=== PATIENT | male | born 1975 | race Hispanic/Latino ===

== ENCOUNTER 2016-07-02 22:59 | Inpatient (IN) | payer MEDICARE, OTHER ==
--- NOTE | 2016-07-02 23:22 | C.PDOC ---
History Of Present Illness Patient is a transfer from [facility] for psych. admission and accepted by Dr. Persaud. Time Seen by Provider: 07/02/16 23:09 Chief Complaint (Nursing): Psychiatric Evaluation History Per: Patient History/Exam Limitations: no limitations Onset/Duration Of Symptoms: Days Current Symptoms Are (Timing): Still Present Suicide/Self Injury Attempted (Context): None Modifying Factor(s): None Severity: Mild Pain Scale Rating Of: 0 Associated Symptoms: Depression Involuntary Hold By: None Recent travel outside of the [place]: No Additional History Per: Patient, Prior Records Past Medical History Vital Signs: Last Vital Signs Temp 98.3 F 07/02/16 23:09 Pulse 85 07/02/16 23:09 Resp 14 07/02/16 23:09 BP 170/115 H 07/02/16 23:09 Pulse Ox 97 07/02/16 23:30 - Medical History PMH: Back Problems Family History: States: Unknown Family Hx - Social History Hx Alcohol Use: Yes Hx Substance Use: No - Immunization History Hx Tetanus Toxoid Vaccination: Yes Hx Influenza Vaccination: Yes Hx Pneumococcal Vaccination: No Review Of Systems Constitutional: Negative for: Fever Eyes: Positive for: Other (lateral strabismus Right eye) ENT: Negative for: Ear Pain Cardiovascular: Negative for: Chest Pain, Palpitations, Orthopnea Respiratory: Negative for: Cough, Shortness of Breath, Hemoptysis Gastrointestinal: Negative for: Nausea, Vomiting, Abdominal Pain Genitourinary: Negative for: Dysuria Musculoskeletal: Negative for: Neck Pain, Shoulder Pain, Arm Pain Skin: Negative for: Rash, Lesions Neurological: Negative for: Weakness, Numbness, Incoordination, Change in Speech Psych: Positive for: Depression. Negative for: Withdrawal Physical Exam - Physical Exam Appears: Well, Non-toxic Skin: Normal Color Head: Atraumatic Eye(s): right: Other (lateral strabismus) Ear(s): Bilateral: Normal Nose: Normal Oral Mucosa: Moist Tongue: Normal Appearing Lips: Normal Appearing Throat: Normal Neck: Normal Chest: Symmetrical, No Deformity, No Tenderness Cardiovascular: Rhythm Regular, No Edema, No Murmur, No JVD Respiratory: Normal Breath Sounds Gastrointestinal/Abdominal: Normal Exam Back: Normal Inspection Extremity: Normal ROM ED Course And Treatment O2 Sat by Pulse Oximetry: 97 Disposition Discussed With : Elan Persaud Doctor Will See Patient In The: Hospital Counseled Patient/Family Regarding: Diagnosis - Disposition Disposition: HOSPITALIZED Disposition Time: 23:21 Condition: STABLE - POA Present On Arrival: None - Clinical Impression Clinical Impression: Depression, Hypertension
[2016-07-02 23:58] VITALS: O2SAT 99
--- NOTE | 2016-07-03 09:00 | PCM.PSYCH ---
Initial Psychiatric Evaluation - Initial Psychiatric Evaluation Type of Admission: Voluntary Legal Status: Capacity Chief Complaint (in patient's own words): "Very depressed, hopeless..." History of Present Illness and Precipitating Events: The pt is seen, chart reviewed, case discussed. He is a 41 yo WM, single, no child, disabled due to CP and pain syndrome (disc hernias) and is homeless "practically" b/c he was living with [facility] drug dealer and his GF but cannot return there. He says he has been depressed for a long time and it has gotten worse over months as he is losing his father (brain tumor), "kicked out" from his pain clinic due to his cocaine use, has poor support, no real place to stay. He denies psychotic or manic sxs but reports many depressive sxs. He felt suicidal and thought about OD'ing. He also uses cocaine 1-2 gm/d x 20 years, i.n. or po. Smokes 1.5 ppd cigarettes. Abdon drugs and alcohol but he was on painkillers for a while, yet "not abused." No detox or rehab Past psych: No prev. admissions but OD'ed intentionally in the past. Family psych hx: Fa was an alcoholic Medical hx: CP, disch hernia, s/p gastric bypass surgery but he says his health got worse afterwards. Current Medications: Active Medications Generic Name Dose Route Start Last Admin Trade Name Freq PRN Reason Stop Dose Admin Trazodone HCl 50 mg 07/03/16 22:00 Desyrel PO [facility] Past Psychiatric History - Past Psychiatric History Previous Treatment History: None Pertinent Medical Hx (Current Medical&Sleep Prob, Allergies): Allergies Allergy/AdvReac Type Severity Reaction Status Date / Time phenobarbital Allergy Verified 07/02/16 23:15 No Known Home Med 07/02/16 Review of Systems - Neurological Neurological: Weakness - Psychiatric Psychiatric: Abnormal Sleep Pattern, Anhedonia, Anxiety, Depression, Difficulty Concentrating. absent: Hallucinations, Homicidal Ideation, Paranoia, Suicidal Ideation (none now, contracts for safety) Mental Status Examination - Personal Presentation Personal Presentation: Looks older than stated age - Affect Affect: Constricted - Motor Activity Motor Activity: Calm - Reliability in Providing Information Reliability in Providing Information: Fair - Speech Speech: Organized - Mood Mood: Depressed, Anxious - Formal Thought Process Formal Thought Process: No Impairment - Cognitive Functions Orientation: Person, Place, Situation, Time Sensorium: Alert Attention/Concentration: Attentive Estimate of Intelligence: Average Judgement: Intact, as evidence by: Insight regarding need for hospitalization Memory: Recent intact, as evidence by: Ability to recall events of the day, Remote intact, as evidenced by: Abilit to recall sig. life events - Risk Risk: Diminished functioning - Strength & Assets Inventory Strength & Assets Inventory: Cooperative - Limitations Limitations: Living alone DSM 5 DX - DSM 5 DSM 5 Diagnosis: major depression, recurrent, severe, not-psychotic Cocaine use d/o - severe Tobacco use d/o - sveer Disc hernia CP - Recommended/Plan of Treatment Treatment Recommendations and Plan of Treatment: Depression: - Cymbalta - Support and psychoed - Attend groups and activities - CBt and supportive tx Cocaine use d/o: - Gabapentin - CBT and [place] - Attend groups and activities Pain and other medical issues: - Periactin for weight loss and loss of appetite - Ultram prn for pain - Bactrim for UTI - Flexeril for spasms Tobacco: - Patch - [place] for abstinence 33 min Projected ELOS: 5-6 days Prognosis: Fair to good Discharge Plan and Discharge Criteria: No severe depressive sxs Refer to an IOP or rehab - Smoking Cessation Smoking Cessation Initiated: Yes
[2016-07-03] MEDS: Tramadol 25 mg PO PRN (12:48)
[2016-07-03] MEDS: Tmp-Smz 800 mg-160 mg DS Tab PO SCH (13:19)
[2016-07-03] MEDS: Tmp-Smz 200-40mg/5 ml Oral Sus(120 ml) PO SCH (21:22)
[2016-07-04] MEDS: Tmp-Smz 800 mg-160 mg DS Tab PO SCH (11:05)
[2016-07-04] MEDS: Tmp-Smz 200-40mg/5 ml Oral Sus(120 ml) PO SCH (11:09)
--- NOTE | 2016-07-04 14:51 | PCM.PYCHPN ---
Psychiatric Progress Note - Psychiatric Progress Note Patient seen today, length of contact: 17 min Patient Chief Complaint: "I am feeling so so" Problems Identified/Issues Discussed: Pt seen and evaluated. Chart reviewed and discussed with the nurse. Pt appears withdrawn anxious and agitated. He complains of nausea and vomited once today after lunch. He admits to suicidal ideation. Denies homicidal ideation. Denies auditory and visual hallucinations or persecutory delusions. Pt would like to go to inpatient rehab after discharge. Supportive therapy and PsychEducation provided. Medication Change: Yes Medical Record Reviewed: Yes Mental Status Examination - Cognitive Function Orientation: Person, Place, Situation, Time Attention: Poor Concentration: Poor Association: WNL Fund of Knowledge: WNL - Mood Mood: Depressed, Anxious - Affect Affect: Constricted - Speech Speech: Slurred, Soft - Formal Thought Process Formal Thought Process: No Impairment - Suicidal Ideation Suicidal Ideation: Yes Plan: Pt states that he feels like driving his car through a wall - Homicidal Ideation Homicidal Ideation: No Goal/Treatment Plan - Goal/Treatment Plan Need for Continued Stay: Discharge may exacerbated symptoms, Severe functional impairment Progress Toward Problem(s) and Goals/Treatment Plan: Depression: - Cymbalta - Support and psychoed - Attend groups and activities - CBt and supportive tx Cocaine use d/o: - Gabapentin - CBT and MD - Attend groups and activities Pain and other medical issues: - Periactin for weight loss and loss of appetite - Ultram prn for pain - Bactrim for UTI - Flexeril for spasms Tobacco: - Patch - MD for abstinence
--- NOTE | 2016-07-04 17:20 | CP.PCM.PN ---
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 Pt seen and examined. Pt had an unwitnessed fall. At time of exam, pt is sutting in wheel chair. According to nurse, pt was found face down on the floor. Pt reports that he got up and was alking to kitchen when he felt dizzy, and then he does not remember what happened afterwards. He reports he woke up and he was bleeding from his nose. Pt complaining of dizziness and right knee pain. Pt denies fever, chills, headache, changes in vision, nausea, and vomiting. Vitals at 17:14 reveal a blood pressure of 144/91 and HR of 109. CBC, CMP, Head CT, and right knee X-Ray ordered. Pt refused fingerstick glucose. Objective - Vital Signs/Intake and Output Vital Signs (last 24 hours): Temp Pulse Resp BP Pulse Ox 98.9 F 91 H 18 120/80 99 07/04/16 08:04 07/04/16 16:12 07/04/16 08:04 07/04/16 16:12 07/02/16 23:57 - Medications Medications: Current Medications Cyclobenzaprine HCl (Flexeril) 5 mg PO Q8H PRN PRN Reason: muscle spasms Last Admin: 07/04/16 11:04 Dose: 5 mg Cyproheptadine HCl (Periactin) 4 mg PO HS [facility] Last Admin: 07/03/16 21:22 Dose: Not Given Duloxetine HCl (Cymbalta) 30 mg PO DAILY [facility] Last Admin: 07/04/16 11:06 Dose: 30 mg Gabapentin (Neurontin) 300 mg PO TID [facility] Last Admin: 07/04/16 11:06 Dose: 300 mg Hydroxyzine HCl (Atarax) 50 mg PO Q6H PRN PRN Reason: Anxiety Ibuprofen (Motrin Tab) 600 mg PO Q6H PRN PRN Reason: Pain, moderate (4-7) Nicotine (Nicoderm Cq) 1 patch TD DAILY [facility] Last Admin: 07/04/16 11:07 Dose: 1 patch Tramadol HCl (Ultram) 25 mg PO Q8H PRN PRN Reason: Pain, severe (8-10) Last Admin: 07/03/16 12:48 Dose: 25 mg Trazodone HCl (Desyrel) 100 mg PO HS [facility] Last Admin: 07/03/16 21:22 Dose: 100 mg Trimethoprim/Sulfamethoxazole (Sulfatrim Pediatric Susp) 20 ml PO Q12H [facility] Stop: 07/10/16 10:01 Last Admin: 07/04/16 11:09 Dose: 20 ml - Constitutional Appears: No Acute Distress - Head Exam Head Exam: ATRAUMATIC, NORMOCEPHALIC - ENT Exam Additional comments: Bloody nose - Respiratory Exam Respiratory Exam: Clear to Ausculation Bilateral - Cardiovascular Exam Cardiovascular Exam: +S1, +S2 - GI/Abdominal Exam GI & Abdominal Exam: Soft. absent: Tenderness - Extremities Exam Extremities Exam: absent: Pedal Edema - Neurological Exam Neurological Exam: Alert, Awake, Oriented x3 - Psychiatric Exam Psychiatric exam: Depressed - Skin Skin Exam: Normal Color, Warm
--- NOTE | 2016-07-04 18:23 | CT ---
PROCEDURE: CT scan brain dated the 07/04/2016 HISTORY: Fall COMPARISON: No prior study available comparison TECHNIQUE: Axial computed tomography images were obtained through the head/brain without intravenous contrast. Radiation dose: Total exam DLP = 1247.6 mGy-cm. This CT exam was performed using one or more of the following dose reduction techniques: Automated exposure control, adjustment of the mA and/or kV according to patient size, and/or use of iterative reconstruction technique. FINDINGS: HEMORRHAGE: No acute parenchymal, subarachnoid or extra-axial hemorrhage. BRAIN: No mass effect or edema. No atrophy or chronic microvascular ischemic changes. VENTRICLES: There is enlargement of the atria and occipital horns right greater than left suggesting with loss of adjacent white matter more so on the right side as well. Rule out mild colpocephaly CALVARIUM: There are no acute calvarial fractures. PARANASAL SINUSES: Minor mucosal thickening seen within the ethmoid air complex. MASTOID AIR CELLS: Mastoid air complexes well-developed and also well-aerated. OTHER FINDINGS: Bilateral nasal bone fractures are present. IMPRESSION: Bilateral nasal bone fractures with overlying soft tissue swelling No acute intracranial hemorrhage. Dilatation of the atria and occipital horns with what appears represent periventricular white matter volume loss more so on the right side. Findings could represent colpocephaly
[2016-07-04 21:37] LABS: BASO # 0.1 K/uL (0.0-0.2); BASO % 0.6 % (0.0-2.0); EOS # 0.2 K/uL (0.0-0.7); EOS % 2.5 % (0.0-4.0); LYMPH # 1.2 K/uL (1.0-4.3); MEAN CELL VOLUME 80.2 fL (80.0-94.0); MEAN CORPUSCULAR HGB CONC 32.4 g/dL (33.0-37.0); MONO # 0.7 K/uL (0.0-0.8); MONO % 8.9 % (0.0-10.0); RED CELL DISTRIBUTION WIDTH 17.6 % (11.5-14.5); WHITE BLOOD COUNT 8.2 K/uL (4.8-10.8)
[2016-07-04 21:48] LABS: CHLORIDE 97 mmol/L (98-107); POTASSIUM 3.9 mmol/L (3.6-5.2); SODIUM 134 mmol/L (132-148)
[2016-07-04 21:50] LABS: BILIRUBIN,TOTAL 0.4 mg/dL (0.2-1.3); CARBON DIOXIDE 30 mmol/L (22-30); GFR AFRICAN-AMERICAN > 60
[2016-07-04 21:51] LABS: ALB/GLOB RATIO 1.2 (1.0-2.1); ALKALINE PHOSPHATASE 91 U/L (38-126); ALT/SGPT 19 U/L (21-72); AST/SGOT 25 U/L (17-59); BLOOD UREA NITROGEN 10 mg/dL (9-20); CALCIUM 8.4 mg/dl (8.6-10.4); GLUCOSE,RANDOM 88 mg/dL (75-110); MAGNESIUM 2.5 mg/dL (1.6-2.3); PHOSPHOROUS 4.2 mg/dL (2.5-4.5); TOTAL PROTEIN 6.3 g/dL (6.3-8.3)
[2016-07-05] MEDS: Tmp-Smz 200-40mg/5 ml Oral Sus(120 ml) PO SCH ×2 (11:38→21:26)
--- NOTE | 2016-07-05 13:15 | RAD ---
PROCEDURE: Right Knee Radiographs. HISTORY: Trauma/fall. COMPARISON: None. FINDINGS: BONES: Normal. No fracture. JOINTS: Normal. No osteoarthritis. JOINT EFFUSION: None. OTHER FINDINGS: None. IMPRESSION: No acute findings related to/accounting for the clinical presentation.
--- NOTE | 2016-07-05 15:33 | PCM.PYCHPN ---
Psychiatric Progress Note - Psychiatric Progress Note Patient seen today, length of contact: 17 min Patient Chief Complaint: "I feel sore in my hands, back, nose" Problems Identified/Issues Discussed: Patient reports feeling sore on his hands, back and nose. Last night the patient felt dizzy, went to lean on a door which opened, causing him to fall and patient said the next thing remembers is waking up. CT came back negative. Reports having thoughts of hurting himself with a plan of overdosing on medication and feels that people are out to get him including his sister. Denies homicidal ideation. Patient reports withdrawal symptoms including nausea , abdominal pain, body aches, chills and denies any medication side effects. Patient currently feels anxious about life and denies feelings of anger and agitation. Denies auditory and visual hallucinations, feeling like people are following him or reading his mind and thoughts. Patient does not have plans for after discharge and would like to speak to a social media intern to coordinate one. Medication Change: Yes Medical Record Reviewed: Yes Mental Status Examination - Cognitive Function Orientation: Person, Place, Situation, Time Memory: Intact Attention: WNL Concentration: Poor Association: WNL Fund of Knowledge: WNL - Mood Mood: Depressed, Anxious - Affect Affect: Constricted - Speech Speech: Soft - Formal Thought Process Formal Thought Process: Paranoia Psychotic Thoughts and Behaviors: Patient feels like people are out to get him, including his sister. - Suicidal Ideation Suicidal Ideation: Yes Plan: Plan is to overdose on medications. - Homicidal Ideation Homicidal Ideation: No Goal/Treatment Plan - Goal/Treatment Plan Need for Continued Stay: Severe depression anxiety, Discharge may exacerbated symptoms, Severe functional impairment Progress Toward Problem(s) and Goals/Treatment Plan: Depression: - Cymbalta - Support and psychoeducation - Attend groups and activities - CBT and supportive tx Cocaine use d/o: - Gabapentin - CBT and [place] - Attend groups and activities Pain and other medical issues: - Periactin for weight loss and loss of appetite - Ultram prn for pain - Bactrim for UTI - Flexeril for spasms Tobacco: - Patch - [place] for abstinence
[2016-07-05] MEDS: Tramadol 25 mg PO PRN (21:30)
[2016-07-06] MEDS: Multiple Vitamins Tab PO SCH (11:59)
--- NOTE | 2016-07-06 15:02 | PCM.PYCHPN ---
Psychiatric Progress Note - Psychiatric Progress Note Patient seen today, length of contact: 16 min Patient Chief Complaint: "I am feeling better." Problems Identified/Issues Discussed: The pt is seen, chart reviewed, case discussed with staff. Patient reports felling better but still has thoughts of hurting himself with a plan to go park his car and use carbon monoxide poisoning. Patient is anxious, feels like people are out to gt him, and started to hear voices last night but did not understand what the voices were saying. Denies homicidal ideation, visual hallucinations, feeling that people are following him or reading his mind and thoughts. Patient reports detox is going well, however he has poor sleep and appetite. Withdrawal symptoms include nausea, abdominal pain, body aches, cold/heat intolerance, sweating, chills. Side effects to the medication include diarrhea and lethargy. Pt refused PT consult. Plans after discharge include rehab. Medication Change: Yes Medical Record Reviewed: Yes Mental Status Examination - Cognitive Function Orientation: Person, Place, Situation, Time Memory: Intact Attention: WNL Concentration: Poor Association: WNL Fund of Knowledge: WNL - Mood Mood: Depressed, Anxious - Affect Affect: Constricted - Speech Speech: Soft - Formal Thought Process Formal Thought Process: Hallucinations, Paranoia Psychotic Thoughts and Behaviors: Patient began hearing voices that were not there last night. Patient did not understand the voices. - Suicidal Ideation Suicidal Ideation: Yes Plan: Plan includes parking somewhere and using carbon monoxide. - Homicidal Ideation Homicidal Ideation: No Goal/Treatment Plan - Goal/Treatment Plan Need for Continued Stay: Severe depression anxiety, Discharge may exacerbated symptoms, Severe functional impairment Progress Toward Problem(s) and Goals/Treatment Plan: Major Depressive Disorder, chronic with psychotic features: - Cymbalta - Support and psychoeducation - Attend groups and activities - CBT and supportive tx Cocaine use d/o: - Gabapentin - CBT and [place] - Attend groups and activities Pain and other medical issues: - Periactin for weight loss and loss of appetite - Ultram prn for pain - Bactrim for UTI - Flexeril for spasms Tobacco: - Patch - [place] for abstinence
[2016-07-06] MEDS: Tmp-Smz 200-40mg/5 ml Oral Sus(120 ml) PO SCH (21:41)
[2016-07-07] MEDS: Tmp-Smz 200-40mg/5 ml Oral Sus(120 ml) PO SCH (21:15)
--- NOTE | 2016-07-07 22:26 | PCM.PYCHPN ---
Psychiatric Progress Note - Psychiatric Progress Note Patient seen today, length of contact: 17 min Patient Chief Complaint: "I am dizzy" Problems Identified/Issues Discussed: The pt is seen, chart reviewed, case discussed with staff. Patient is imprving slowly. Support and psychoed given KS used Still slightly unsteady but not motivated for PE After care discussed Medication Change: No Medical Record Reviewed: Yes Mental Status Examination - Cognitive Function Orientation: Person, Place, Situation, Time Memory: Intact Attention: WNL Concentration: Poor Association: WNL Fund of Knowledge: WNL - Mood Mood: Depressed, Anxious - Affect Affect: Constricted - Speech Speech: Soft - Formal Thought Process Formal Thought Process: Paranoia Psychotic Thoughts and Behaviors: Patient began hearing voices that were not there last night. Patient did not understand the voices. - Suicidal Ideation Suicidal Ideation: No - Homicidal Ideation Homicidal Ideation: No Goal/Treatment Plan - Goal/Treatment Plan Need for Continued Stay: Severe depression anxiety, Discharge may exacerbated symptoms, Severe functional impairment Progress Toward Problem(s) and Goals/Treatment Plan: Major Depressive Disorder, chronic with psychotic features: - Cymbalta - Support and psychoeducation - Attend groups and activities - CBT and supportive tx Cocaine use d/o: - Gabapentin dc'ed - CBT and [place] - Attend groups and activities Pain and other medical issues: - Periactin for weight loss and loss of appetite - Ultram prn for pain - Bactrim for UTI - Flexeril for spasms Tobacco: - Patch - [place] for abstinence
[2016-07-08] MEDS: Pantoprazole 40 mg EC Tab PO SCH (11:22)
[2016-07-08] MEDS: Multiple Vitamins Tab PO SCH (11:25)
--- NOTE | 2016-07-08 15:17 | PCM.PYCHPN ---
Psychiatric Progress Note - Psychiatric Progress Note Patient seen today, length of contact: 15 min Patient Chief Complaint: "I am OK a little" Problems Identified/Issues Discussed: The pt is seen, chart reviewed, case discussed with staff. His eating is still a problem. Diet changed, vitamins added, advice and consult provided. Support and [place] used, CBT provided Not suicidal but still depressed / anxious Medication Change: No Medical Record Reviewed: Yes Mental Status Examination - Cognitive Function Orientation: Person, Place, Situation, Time Memory: Intact Attention: WNL Concentration: WNL Association: WN Fund of Knowledge: WN - Mood Mood: Depressed, Anxious - Affect Affect: Constricted - Speech Speech: Soft - Formal Thought Process Formal Thought Process: No Impairment Psychotic Thoughts and Behaviors: Patient began hearing voices that were not there last night. Patient did not understand the voices. - Suicidal Ideation Suicidal Ideation: No - Homicidal Ideation Homicidal Ideation: No Goal/Treatment Plan - Goal/Treatment Plan Need for Continued Stay: Severe depression anxiety, Discharge may exacerbated symptoms, Severe functional impairment Progress Toward Problem(s) and Goals/Treatment Plan: Major Depressive Disorder, chronic with psychotic features: - Cymbalta - Support and psychoeducation - Attend groups and activities - CBT and supportive tx Cocaine use d/o: - Gabapentin dc'ed - CBT and [place] - Attend groups and activities Pain and other medical issues: - Periactin for weight loss and loss of appetite - Ultram prn for pain - Bactrim for UTI ending - Flexeril for spasms Tobacco: - Patch - [place] for abstinence
[2016-07-08 18:26] LABS: BASO % 0.6 % (0.0-2.0); EOS # 0.1 K/uL (0.0-0.7); HEMATOCRIT 34.9 % (35.0-51.0); LYMPH # 0.8 K/uL (1.0-4.3); LYMPH % 11.3 % (20.0-40.0); MEAN CELL VOLUME 79.8 fL (80.0-94.0); MEAN CORPUSCULAR HEMOGLOBIN 25.7 pg (27.0-31.0); MEAN CORPUSCULAR HGB CONC 32.2 g/dL (33.0-37.0); MEAN PLATELET VOLUME 8.2 fL (7.2-11.7); MONO # 0.7 K/uL (0.0-0.8); RED CELL DISTRIBUTION WIDTH 17.5 % (11.5-14.5); WHITE BLOOD COUNT 6.8 K/uL (4.8-10.8)
[2016-07-08 18:43] LABS: CHLORIDE 98 mmol/L (98-107); POTASSIUM 4.5 mmol/L (3.6-5.2); SODIUM 135 mmol/L (132-148)
[2016-07-08 18:45] LABS: ALB/GLOB RATIO 1.2 (1.0-2.1); ALKALINE PHOSPHATASE 95 U/L (38-126); AMYLASE 73 U/L (30-110); AST/SGOT 18 U/L (17-59); BILIRUBIN,TOTAL 0.5 mg/dL (0.2-1.3); BLOOD UREA NITROGEN 11 mg/dL (9-20); CARBON DIOXIDE 28 mmol/L (22-30); GFR AFRICAN-AMERICAN > 60; TOTAL PROTEIN 6.9 g/dL (6.3-8.3)
[2016-07-08 18:46] LABS: ALT/SGPT 19 U/L (21-72); CALCIUM 8.9 mg/dl (8.6-10.4); CHOLESTEROL 150 mg/dL (0-199); GLUCOSE,RANDOM 71 mg/dL (75-110); MAGNESIUM 2.4 mg/dL (1.6-2.3); PHOSPHOROUS 4.7 mg/dL (2.5-4.5)
[2016-07-08] MEDS: Tmp-Smz 200-40mg/5 ml Oral Sus(120 ml) PO SCH (21:34)
[2016-07-09] MEDS: Pantoprazole 40 mg EC Tab PO SCH (11:11)
[2016-07-09] MEDS: Multiple Vitamins Tab PO SCH (11:14)
[2016-07-09] MEDS: Tmp-Smz 200-40mg/5 ml Oral Sus(120 ml) PO SCH ×2 (11:16→21:39)
[2016-07-10] MEDS: Pantoprazole 40 mg EC Tab PO SCH ×2 (10:15→21:51)
[2016-07-10] MEDS: Tmp-Smz 200-40mg/5 ml Oral Sus(120 ml) PO SCH (10:16)
[2016-07-10] MEDS: Multiple Vitamins Tab PO SCH (10:19)
--- NOTE | 2016-07-11 05:17 | PCM.PYCHPN ---
Psychiatric Progress Note - Psychiatric Progress Note Patient seen today, length of contact: 17 min Medication Change: Yes Medical Record Reviewed: Yes Mental Status Examination - Cognitive Function Orientation: Person, Place, Situation, Time Memory: Intact Attention: WNL Concentration: Poor Association: WNL Fund of Knowledge: WNL - Mood Mood: Depressed, Anxious - Affect Affect: Constricted - Speech Speech: Soft - Formal Thought Process Formal Thought Process: Hallucinations, Paranoia - Suicidal Ideation Suicidal Ideation: Yes - Homicidal Ideation Homicidal Ideation: No Goal/Treatment Plan - Goal/Treatment Plan Need for Continued Stay: Severe depression anxiety, Discharge may exacerbated symptoms, Severe functional impairment
[2016-07-11] MEDS: Multiple Vitamins Tab PO SCH ×2 (09:57→10:01)
[2016-07-11] MEDS: Pantoprazole 40 mg EC Tab PO SCH (10:05)
[2016-07-11] MEDS ORDERED: Tramadol 25 mg PO PRN (11:51)
--- NOTE | 2016-07-11 23:02 | PCM.PYCHPN ---
Psychiatric Progress Note - Psychiatric Progress Note Patient seen today, length of contact: 16 min Patient Chief Complaint: "I need to go to a rehab first" Problems Identified/Issues Discussed: The pt is seen, chart reviewed, case discussed with staff. Weekend was better he says but still c/o dizziness. He is now refusing most meds "not all" b/c of dizziness. He is improving but still depressed. Not suicidal. Wants to go to a [facility] and then drug rehab - he is homeless Support given Cymbalta is switched to Lexapro Medication Change: Yes (lexapro) Medical Record Reviewed: Yes Mental Status Examination - Cognitive Function Orientation: Person, Place, Situation, Time Memory: Intact Attention: WNL Concentration: Poor Association: WNL Fund of Knowledge: WNL - Mood Mood: Depressed, Anxious - Affect Affect: Constricted - Speech Speech: Soft - Formal Thought Process Formal Thought Process: No Impairment - Suicidal Ideation Suicidal Ideation: No - Homicidal Ideation Homicidal Ideation: No Goal/Treatment Plan - Goal/Treatment Plan Need for Continued Stay: Severe depression anxiety, Discharge may exacerbated symptoms, Severe functional impairment Progress Toward Problem(s) and Goals/Treatment Plan: Major Depressive Disorder, chronic with psychotic features: - Cymbalta stopped but lexapro started - Support and psychoeducation - Attend groups and activities - CBT and supportive tx Cocaine use d/o: - CBT and [place] provided - Attend groups and activities Pain and other medical issues: - Periactin for weight loss and loss of appetite - Ultram prn for pain decreased - Flexeril for spasms Tobacco: - Patch - [place] for abstinence
[2016-07-12] MEDS ORDERED: Pantoprazole 40 mg EC Tab PO SCH (10:00)
[2016-07-12] MEDS: Multiple Vitamins Tab PO SCH (11:04)
--- NOTE | 2016-07-12 14:16 | PCM.PYCHPN ---
Psychiatric Progress Note - Psychiatric Progress Note Patient seen today, length of contact: 16 min Patient Chief Complaint: "I am a little dizzy" Problems Identified/Issues Discussed: This is a 41yo male who is here for major depression, S/I, and cocaine abuse. The patient complains of dizziness and fears falling. He wants to go to a [facility]. The pt is seen, chart reviewed, case discussed with staff. Support and OR used, CBT provided Not suicidal but still depressed / anxious Eating remains to be a problem. He is pesimistic and ignores how much he has improved. Medication Change: No Medical Record Reviewed: Yes Mental Status Examination - Cognitive Function Orientation: Person, Place, Situation, Time Memory: Intact Attention: WNL Concentration: WNL Association: WNL Fund of Knowledge: WN - Mood Mood: Depressed, Anxious - Affect Affect: Constricted - Speech Speech: Soft - Formal Thought Process Formal Thought Process: No Impairment Psychotic Thoughts and Behaviors: Patient began hearing voices that were not there last night. Patient did not understand the voices. - Suicidal Ideation Suicidal Ideation: No - Homicidal Ideation Homicidal Ideation: No Goal/Treatment Plan - Goal/Treatment Plan Need for Continued Stay: Severe depression anxiety, Discharge may exacerbated symptoms, Severe functional impairment Progress Toward Problem(s) and Goals/Treatment Plan: Major Depressive Disorder, chronic with psychotic features: - Cymbalta - Support and psychoeducation - Attend groups and activities - CBT and supportive tx Cocaine use d/o: - Gabapentin dc'ed - CBT and OR - Attend groups and activities Pain and other medical issues: - Periactin for weight loss and loss of appetite - Ultram prn for pain - Bactrim for UTI ending - Flexeril for spasms Tobacco: - Patch - OR for abstinence - Smoking Cessation Smoking Cessation Initiated: Yes
[2016-07-12] MEDS: Pantoprazole 40 mg EC Tab PO SCH (17:45)
--- NOTE | 2016-07-12 22:52 | PCM.PYCHPN ---
Psychiatric Progress Note - Psychiatric Progress Note Patient seen today, length of contact: 16 min Patient Chief Complaint: i should have had the gastric by-pass. i thought i was doing something good for myself and i made myself worse Problems Identified/Issues Discussed: suicide who would miss him Medical Problems: anorexxia gait disturbanc Diagnostic Results: reviewed DSM 5 Symptoms Update: negativism s Medication Change: No Medical Record Reviewed: Yes Mental Status Examination - Cognitive Function Orientation: Person, Place, Situation, Time Memory: Intact Attention: WNL Concentration: WNL Association: WNL Fund of Knowledge: WNL - Mood Mood: Depressed, Anxious - Affect Affect: Constricted - Speech Speech: Soft - Formal Thought Process Formal Thought Process: No Impairment - Suicidal Ideation Suicidal Ideation: No - Homicidal Ideation Homicidal Ideation: No Goal/Treatment Plan - Goal/Treatment Plan Need for Continued Stay: Severe depression anxiety, Discharge may exacerbated symptoms, Severe functional impairment Progress Toward Problem(s) and Goals/Treatment Plan: anhedonic anergic aanhedonic - Smoking Cessation Smoking Cessation Initiated: No
--- NOTE | 2016-07-12 22:58 | PCM.PYCHPN ---
Psychiatric Progress Note - Psychiatric Progress Note Patient seen today, length of contact: 16 min Patient Chief Complaint: what is the point of living if life is not worth living Problems Identified/Issues Discussed: pt wants to transfer to [place], explained difficulty of a lateral transfer , no energy no motivation insomnia makes pain worse Medical Problems: pain asthenia Diagnostic Results: reviewed Medication Change: No Medical Record Reviewed: Yes Mental Status Examination - Cognitive Function Orientation: Person, Place, Situation, Time Memory: Intact Attention: WNL Concentration: WNL Association: WNL Fund of Knowledge: WNL - Mood Mood: Depressed, Anxious - Affect Affect: Constricted - Speech Speech: Appropriate - Formal Thought Process Formal Thought Process: No Impairment - Suicidal Ideation Suicidal Ideation: No - Homicidal Ideation Homicidal Ideation: No Goal/Treatment Plan - Goal/Treatment Plan Need for Continued Stay: Remain at risks for inpatient hospitalization, Severe depression anxiety, Discharge may exacerbated symptoms, Severe functional impairment Progress Toward Problem(s) and Goals/Treatment Plan: anhedonia aenergic avolition - Smoking Cessation Smoking Cessation Initiated: No
[2016-07-13] MEDS: Pantoprazole 40 mg EC Tab PO SCH ×2 (09:59→18:57)
[2016-07-13] MEDS: Multiple Vitamins Tab PO SCH (09:59)
--- NOTE | 2016-07-13 14:10 | PCM.PYCHPN ---
Psychiatric Progress Note - Psychiatric Progress Note Patient seen today, length of contact: 22 min Patient Chief Complaint: "I am worried" Problems Identified/Issues Discussed: The pt is seen, chart reviewed, case discussed with staff. The pt is not compliant with some medications due to their sizes or perceived "side-effects." Symptoms are improving but needs more time to stabilize. He is no longer as depressed but c/o dizziness even though all meds that can cause stopped. Plus, he himself asked the curriculum writer to prescribe the insomnia medication trazodone which causes dizziness. Periactin increased instead. After care discussed, he is interested in [facility] and also drug rehabs support and psychoeducation given. Medication Change: Yes (increase lexapro and periactin, d/c vitamins per his request) Medical Record Reviewed: Yes Mental Status Examination - Cognitive Function Orientation: Person, Place, Situation, Time Memory: Intact Attention: WNL Concentration: WNL Association: WN Fund of Knowledge: WN - Mood Mood: Depressed, Anxious - Affect Affect: Constricted - Speech Speech: Appropriate - Formal Thought Process Formal Thought Process: No Impairment - Suicidal Ideation Suicidal Ideation: No - Homicidal Ideation Homicidal Ideation: No Goal/Treatment Plan - Goal/Treatment Plan Need for Continued Stay: Discharge may exacerbated symptoms, Severe functional impairment Progress Toward Problem(s) and Goals/Treatment Plan: Major Depressive Disorder, chronic with psychotic features: - Lexapro was started after cymbalta refused, dose is now 10 mg - Support and psychoeducation - Attend groups and activities - CBT and supportive tx Cocaine use d/o: - CBT and RI - Attend groups and activities Pain and other medical issues: - Periactin for weight loss and loss of appetite - Ultram prn for pain - Bactrim for UTI ending - Flexeril for spasms Tobacco: - Patch - RI for abstinence
[2016-07-13] MEDS: Ergocalciferol 50,000 Intl Units Cap PO SCH (16:16)
[2016-07-14] MEDS: Pantoprazole 40 mg EC Tab PO SCH ×2 (09:29→18:35)
--- NOTE | 2016-07-14 12:30 | PCM.PYCHPN ---
Psychiatric Progress Note - Psychiatric Progress Note Patient seen today, length of contact: 32 min Patient Chief Complaint: "I'd like to go to a rehab" Problems Identified/Issues Discussed: The pt is seen twice, chart reviewed, case discussed with staff. He wants [facility] or drug rehab but has concerns over how he will pay phone bills next month. Reassurance given His "dizziness" continues. He is observed to be able to walk OK with out his walker (forgot to use it) but he gets upset when he was told that he should be OK by now or very soon. He clings to it and claims we caused it, even though he was in a very bad when he came to the unit and was bedridden for few days almost. He is now much healthier,gained some weight and strength, looks brighter and more upbeat. Denies SI, HI and no AVH/del elicited. He has no orthostatic hypotension. Re dizziness, we will now d/c his flexeril and periactin to see if they might be causing that. He agreed. He will use prn atarax for insomnia if needed. Also , he is advised to refrain from using any unnecessary meds to see if he will improve. Neuro consult requested. PT recommended home-based PT, not [facility]. Pv Installer Tech contacted [facility] to see f they will take him for rehab. Support and psychoeducation given. Medication Change: Yes (DC periactin and flexeril) Medical Record Reviewed: Yes Mental Status Examination - Cognitive Function Orientation: Person, Place, Situation, Time Memory: Intact Attention: WNL Concentration: WNL Association: [facility] Fund of Knowledge: WN - Mood Mood: Depressed, Anxious - Affect Affect: Constricted - Speech Speech: Appropriate - Formal Thought Process Formal Thought Process: No Impairment - Suicidal Ideation Suicidal Ideation: No - Homicidal Ideation Homicidal Ideation: No Goal/Treatment Plan - Goal/Treatment Plan Need for Continued Stay: Discharge may exacerbated symptoms, Severe functional impairment Progress Toward Problem(s) and Goals/Treatment Plan: Major Depressive Disorder: - Lexapro 10 mg - Support and psychoeducation - Attend groups and activities - CBT and supportive tx Cocaine use d/o: - CBT and IA - Attend groups and activities Pain and other medical issues: - Ultram prn for pain - Flexeril dc'ed - Neuro consult - Vit D level was checked Tobacco: - Patch - IA for abstinence
--- NOTE | 2016-07-14 20:06 | CP.PCM.CON ---
History of Present Illness - History of Present Illness History of Present Illness: Mr. Hoover is a 41-year-old man who is currently admitted to the psych unit for depression, drug use and feeling "hopeless". He states that he smokes 1.5 packs per day, and uses 1-2 grams of cocaine daily for the last 20 years. For the last day or so, the patient has been feeling light-headed, a spinning sensation and has fallen. He did not lose consciousness and no urinary or bowel incontinence. Today, when I asked the patient to stand from a seated position, he said that he feels unsteady. This was made worse after eye examination. He denied visual changes, headaches, nausea, vomiting, weakness, sensory changes, chest pain or shortness of breath. Review of Systems - Review of Systems All systems: reviewed and no additional remarkable complaints except Past Patient History - Past Social History Smoking Status: Heavy Smoker > 10 Cigarettes Daily - PSYCHIATRIC Hx Substance Use: Yes - SURGICAL HISTORY Hx Gastric Bypass Surgery: Yes Meds Allergies/Adverse Reactions: Allergies Allergy/AdvReac Type Severity Reaction Status Date / Time phenobarbital Allergy Verified 07/02/16 23:15 - Medications Medications: Current Medications Ergocalciferol (Drisdol 50,000 Intl Units Cap) 1 cap PO Q7D [facility] Last Admin: 07/13/16 16:16 Dose: Not Given Escitalopram Oxalate (Lexapro) 10 mg PO DAILY [facility] Last Admin: 07/14/16 09:29 Dose: 10 mg Hydroxyzine HCl (Atarax) 25 mg PO HS PRN PRN Reason: Insomnia Ibuprofen (Motrin Tab) 600 mg PO Q6H PRN PRN Reason: Pain, moderate (4-7) Last Admin: 07/11/16 16:29 Dose: 600 mg Nicotine (Nicoderm Cq) 1 patch TD DAILY [facility] Last Admin: 07/14/16 10:25 Dose: Not Given Pantoprazole Sodium (Protonix Ec Tab) 40 mg PO BID [facility] Last Admin: 07/14/16 18:35 Dose: 40 mg Tramadol HCl (Ultram) 25 mg PO Q12H PRN PRN Reason: Pain, severe (8-10) Physical Exam - Constitutional Appears: Older Than Stated Age - Head Exam Head Exam: ATRAUMATIC, NORMAL INSPECTION, NORMOCEPHALIC - Eye Exam Eye Exam: EOMI, Normal appearance, PERRL - ENT Exam ENT Exam: Mucous Membranes Moist, Normal Exam - Neck Exam Neck exam: Positive for: Normal Inspection - Respiratory Exam Respiratory Exam: Clear to Auscultation Bilateral, NORMAL BREATHING PATTERN - Cardiovascular Exam Cardiovascular Exam: REGULAR RHYTHM, +S1, +S2 - GI/Abdominal Exam GI & Abdominal Exam: Normal Bowel Sounds, Soft. absent: Tenderness - Rectal Exam Rectal Exam: Deferred - Back Exam Back exam: NORMAL INSPECTION - Neurological Exam Neurological exam: Abnormal Gait, Alert, CN II-XII Intact, Oriented x3, Reflexes Normal Additional comments: Awake, alert and oriented to person, place and time. Strength is symmetrical throughout. Reflexes are normal. Nystabmus noted on left lateral gaze. This elicited vertigo. Gait was unsteady and wide-based. Results - Vital Signs Recent Vital Signs: Last Vital Signs Temp 97.4 F L 07/14/16 07:57 Pulse 106 H 07/14/16 16:06 Resp 19 07/14/16 07:57 BP 111/69 07/14/16 16:06 Pulse Ox 99 07/09/16 08:02 - Labs Result Diagrams: 07/08/16 18:19 07/08/16 18:19 - Imaging and Cardiology CT scan - head Status: Image reviewed by me, Report reviewed by me (CT head done on 07/04 showed periventricular white matter disease and ventriculomegaly worse on the right. ) Assessment & Plan (1) Vertigo Assessment and Plan: Will start meclizine at 25 mg BID and obtain an MRI of the brain with and without contrast. I recommend PT/OT and start aspirin 81 mg daily for stroke prevention. Thank you very much for this consultation. Status: Acute
[2016-07-15] MEDS: Pantoprazole 40 mg EC Tab PO SCH ×2 (10:45→18:05)
--- NOTE | 2016-07-15 10:48 | PCM.PYCHDC ---
Mental Status Examination - Mental Status Examination Orientation: Person, Place, Situation, Time Memory: Intact Mood: Neutral Affect: Constricted Speech: Soft Attention: WNL Concentration: WNL Association: WNL Fund of Knowledge: WNL Formal Thought Process: No Impairment Description of patient's judgement and insight: GOOD, FAIR Psychotic Thoughts and Behaviors: Denies any AVH Suicidal Ideation: No Current Homicidal Ideation?: No Discharge Summary - Discharge Note Reason for Hospitalization: The pt is seen, chart reviewed, case discussed. He is a 41 yo WM, single, no child, disabled due to CP and pain syndrome (disc hernias) and is homeless "practically" b/c he was living with [facility] drug dealer and his GF but cannot return there. He says he has been depressed for a long time and it has gotten worse over months as he is losing his father (brain tumor), "kicked out" from his pain clinic due to his cocaine use, has poor support, no real place to stay. He denies psychotic or manic sxs but reports many depressive sxs. He felt suicidal and thought about OD'ing. He also uses cocaine 1-2 gm/d x 20 years, i.n. or po. Smokes 1.5 ppd cigarettes. Abdon drugs and alcohol but he was on painkillers for a while, yet "not abused." No detox or rehab Past psych: No prev. admissions but OD'ed intentionally in the past. Family psych hx: Fa was an alcoholic Medical hx: CP, disch hernia, s/p gastric bypass surgery but he says his health got worse afterwards. Consultations:: List each consultation separately and include: 1. Reason for request. 2. Findings. 3. Follow-up Summary of Hospital Course include:: 1. Description of specific treatment plan utilized for patients during their course of treatmen. 2. Summarize the time- course for resolution of acute symptoms and/or regressed behaviors. 3. Describe issues identified and worked on during hospitalization. 4. Describe medication utilized. 5. Describe medical problems identified and treated. 6. Reassessment of suicide risk - Final Diagnosis (DSM 5) Condition upon Discharge: STABLE DSM 5: major depression, recurrent, severe, not-psychotic Cocaine use d/o - severe Tobacco use d/o - sveer Disc hernia CP Disposition: HOME/ ROUTINE Prescriptions/Medication Reconciliation: Cyclobenzaprine [Flexeril] 5 mg PO TID #90 tab Escitalopram [Lexapro] 10 mg PO DAILY #30 tab Pantoprazole [Protonix EC Tab] 40 mg PO BID #60 ect traZODone [Desyrel] 50 mg PO HS #30 tab
--- NOTE | 2016-07-15 15:45 | PCM.PYCHPN ---
Psychiatric Progress Note - Psychiatric Progress Note Patient seen today, length of contact: 17 min Patient Chief Complaint: I am feeling anxious Problems Identified/Issues Discussed: Patient seen and evaluated, chart reviewed and discussed with the nurse. Patient reports irritability, and anxiety. He was scheduled be discharged today couldn't leave due to transport situation. He remained isolated and reports improvement in his symptoms. He is taking medications and denies any side effects. Supportive therapy and psychoeducation were given. Medication Change: No Medical Record Reviewed: Yes Mental Status Examination - Cognitive Function Orientation: Person, Place, Situation, Time Memory: Intact Attention: WNL Concentration: WNL Association: WN Fund of Knowledge: WN - Mood Mood: Depressed, Anxious - Affect Affect: Constricted - Speech Speech: Appropriate, Soft - Formal Thought Process Formal Thought Process: No Impairment - Suicidal Ideation Suicidal Ideation: No - Homicidal Ideation Homicidal Ideation: No Goal/Treatment Plan - Goal/Treatment Plan Need for Continued Stay: Discharge may exacerbated symptoms, Severe functional impairment Progress Toward Problem(s) and Goals/Treatment Plan: Major Depressive Disorder: - Lexapro 10 mg - Support and psychoeducation - Attend groups and activities - CBT and supportive tx Cocaine use d/o: - CBT and IN - Attend groups and activities Pain and other medical issues: - Ultram prn for pain - Flexeril dc'ed - Neuro consult - Vit D level was checked Tobacco: - Patch - IN for abstinence - Smoking Cessation Smoking Cessation Initiated: No
[2016-07-16] MEDS: Pantoprazole 40 mg EC Tab PO SCH ×2 (09:37→18:08)
--- NOTE | 2016-07-16 15:10 | PCM.PYCHPN ---
Psychiatric Progress Note - Psychiatric Progress Note Patient seen today, length of contact: 15 minutes Patient Chief Complaint: I still feel vertigo. Problems Identified/Issues Discussed: Patient seen. Chart reviewed. Case discussed with the staff. Issues related to illness and treatment were discussed with the patient. Reported compliant with treatment with no adverse affects. Patient continued to have vertigo, was seen by neurology and recommended to start aspirin 81 mg daily meclizine 25 mg daily and MRI brain. Patient wants to be transferred to the medical floor. Education provided. The time of evaluation, patient was awake alert oriented 3, had no delusions, no auditory or visual hallucinations, no suicidal ideations or homicidal ideations. Diagnostic Results: Reviewed DSM 5 Symptoms Update: Some improvement with treatment Medication Change: No Medical Record Reviewed: Yes Consults ordered or reviewed: Reviewed Mental Status Examination - Cognitive Function Orientation: Person, Place, Situation, Time Memory: Intact Attention: WNL Concentration: WNL Association: [facility] Fund of Knowledge: [facility] Decription of patient's judgement and insights: Fair - Mood Mood: Depressed - Affect Affect: Constricted, Depressed - Speech Speech: Appropriate - Formal Thought Process Formal Thought Process: No Impairment Psychotic Thoughts and Behaviors: None - Suicidal Ideation Suicidal Ideation: No - Homicidal Ideation Homicidal Ideation: No Goal/Treatment Plan - Goal/Treatment Plan Need for Continued Stay: Remain at risks for inpatient hospitalization, Discharge may exacerbated symptoms, Severe functional impairment Progress Toward Problem(s) and Goals/Treatment Plan: Patient education Supportive therapy Will start meclizine and aspirin as recommended by neurology Continue rest of the treatment as before Estimated Date of D/C: 07/19/16 - Smoking Cessation Smoking Cessation Initiated: Yes
[2016-07-17] MEDS: Pantoprazole 40 mg EC Tab PO SCH ×2 (10:27→17:53)
--- NOTE | 2016-07-17 13:39 | PCM.PYCHPN ---
Psychiatric Progress Note - Psychiatric Progress Note Patient seen today, length of contact: 15 minutes Patient Chief Complaint: I feel dizzy, can you give me something for that. Problems Identified/Issues Discussed: Patient seen. Chart reviewed. Case discussed with the staff. Issues related to illness and treatment were discussed with the patient. Reported compliant with treatment with no adverse affects. Patient continued to have vertigo, and dizziness. The time of evaluation, patient was awake alert oriented 3, had no delusions, no auditory or visual hallucinations, no suicidal ideations or homicidal ideations. Medical Problems: None reported Diagnostic Results: Reviewed DSM 5 Symptoms Update: Some improvement with treatment Medication Change: No Medical Record Reviewed: Yes Consults ordered or reviewed: Reviewed Mental Status Examination - Cognitive Function Orientation: Person, Place, Situation, Time Memory: Intact Attention: WNL Concentration: WNL Association: [facility] Fund of Knowledge: [facility] Decription of patient's judgement and insights: Fair - Mood Mood: Depressed - Affect Affect: Constricted, Depressed - Speech Speech: Appropriate - Formal Thought Process Formal Thought Process: No Impairment Psychotic Thoughts and Behaviors: None - Suicidal Ideation Suicidal Ideation: No - Homicidal Ideation Homicidal Ideation: No Goal/Treatment Plan - Goal/Treatment Plan Need for Continued Stay: Remain at risks for inpatient hospitalization, Discharge may exacerbated symptoms, Severe functional impairment Progress Toward Problem(s) and Goals/Treatment Plan: Patient education Supportive therapy Continue treatment as before Estimated Date of D/C: 07/19/16 - Smoking Cessation Smoking Cessation Initiated: Yes
[2016-07-18] MEDS: Pantoprazole 40 mg EC Tab PO SCH ×2 (10:22→20:32)
--- NOTE | 2016-07-18 16:29 | PCM.PYCHPN ---
Psychiatric Progress Note - Psychiatric Progress Note Patient seen today, length of contact: 15 minutes Patient Chief Complaint: I'm feeling better than before with new medication but still my head moves. Problems Identified/Issues Discussed: Patient seen. Chart reviewed. Case discussed with the staff. Issues related to illness and treatment were discussed with the patient. Reported compliant with treatment with no adverse affects. Patient continued to have vertigo, and dizziness but reported that his vertigo his less than before after start of new medication which was meclizine. The time of evaluation, patient was awake alert oriented 3, had no delusions, no auditory or visual hallucinations, no suicidal ideations or homicidal ideations. Medical Problems: None reported Diagnostic Results: Reviewed DSM 5 Symptoms Update: Some improvement with treatment Medication Change: No Medical Record Reviewed: Yes Consults ordered or reviewed: Reviewed Mental Status Examination - Cognitive Function Orientation: Person, Place, Situation, Time Memory: Intact Attention: WNL Concentration: WNL Association: WN Fund of Knowledge: [facility] Decription of patient's judgement and insights: Fair - Mood Mood: Depressed (Less than before) - Affect Affect: Constricted - Speech Speech: Appropriate - Formal Thought Process Formal Thought Process: No Impairment Psychotic Thoughts and Behaviors: None - Suicidal Ideation Suicidal Ideation: No - Homicidal Ideation Homicidal Ideation: No Goal/Treatment Plan - Goal/Treatment Plan Need for Continued Stay: Remain at risks for inpatient hospitalization, Discharge may exacerbated symptoms, Severe functional impairment Progress Toward Problem(s) and Goals/Treatment Plan: Patient education Supportive therapy Continue treatment as before Estimated Date of D/C: 07/19/16 - Smoking Cessation Smoking Cessation Initiated: Yes
[2016-07-19] MEDS: Pantoprazole 40 mg EC Tab PO SCH ×2 (09:21→17:51)
--- NOTE | 2016-07-19 13:54 | PCM.PYCHPN ---
Psychiatric Progress Note - Psychiatric Progress Note Patient seen today, length of contact: 18 min Patient Chief Complaint: "I'm better" Problems Identified/Issues Discussed: The pt is seen twice, chart reviewed, case discussed with staff. Improving but still depressed but not suicidal. No AVH or del, HI either Not accusatory today and claims he is depressed b/c of his housing situation He asked the senior copywriter to call his PCP, and consented in writing. Holter Technician left a message. He believes his PCP can get him into a [facility] b/c of his "CP or something" His CP is old, of course, and not sure if he may qualify based on that. Holter Technician suggested he try drug rehabs and gave a list of rehabs. Pt thanked and said he would call MRI is pending today. Medication Change: No Medical Record Reviewed: Yes Mental Status Examination - Cognitive Function Orientation: Person, Place, Situation, Time Memory: Intact Attention: WNL Concentration: WNL Association: WNL Fund of Knowledge: WNL - Mood Mood: Depressed (Less than before) - Affect Affect: Constricted - Speech Speech: Appropriate - Formal Thought Process Formal Thought Process: No Impairment - Suicidal Ideation Suicidal Ideation: No - Homicidal Ideation Homicidal Ideation: No Goal/Treatment Plan - Goal/Treatment Plan Need for Continued Stay: Remain at risks for inpatient hospitalization, Discharge may exacerbated symptoms, Severe functional impairment Progress Toward Problem(s) and Goals/Treatment Plan: Major Depressive Disorder: - Lexapro 10 mg - Support and psychoeducation - Attend groups and activities - CBT and supportive tx Cocaine use d/o: - CBT and [place] - Attend groups and activities Tobacco: - Patch - [place] for abstinence Dizziness: - Seen by neuro - help appreciated. Likely vertigo, may be related to his previous cerebral condition, cp etc. - continue meds - MRI pending Estimated Date of D/C: 07/22/16 If changed, why: unstable, depressed, high relapse risk
[2016-07-20] MEDS: Pantoprazole 40 mg EC Tab PO SCH ×2 (10:14→17:06)
[2016-07-20] MEDS ORDERED: Gadodiamide 287 MG/ML VIAL (15ML) IV ONE (10:59)
--- NOTE | 2016-07-20 11:11 | PCM.PYCHPN ---
Psychiatric Progress Note - Psychiatric Progress Note Patient seen today, length of contact: 17 min Patient Chief Complaint: "I lost the referral list" Problems Identified/Issues Discussed: The pt is seen twice, chart reviewed, case discussed with staff. Support given, psychoed used He is much improved but he doesn't seem to acknowledge it. MRI is done just now, results pending He was given a long list of many rehabs and [place] Hotline number to call but instead of calling them, he lost the paper. A new list given and he is advised to call as soon as possible He is now less sarcastic and less irate. Still somewhat depressed. He does NOT look dizzy at all and he does not complain about it anymore. Medication Change: No Medical Record Reviewed: Yes Mental Status Examination - Cognitive Function Orientation: Person, Place, Situation, Time Memory: Intact Attention: WNL Concentration: WNL Association: WNL Fund of Knowledge: WNL - Mood Mood: Depressed (Less than before) - Affect Affect: Constricted - Speech Speech: Appropriate - Formal Thought Process Formal Thought Process: No Impairment - Suicidal Ideation Suicidal Ideation: No - Homicidal Ideation Homicidal Ideation: No Goal/Treatment Plan - Goal/Treatment Plan Need for Continued Stay: Discharge may exacerbated symptoms, Severe functional impairment Progress Toward Problem(s) and Goals/Treatment Plan: Major Depressive Disorder: - Lexapro 10 mg - Support and psychoeducation - Attend groups and activities - CBT and supportive tx Cocaine use d/o: - CBT and [place] - Attend groups and activities Tobacco: - Patch - [place] for abstinence Dizziness: - Seen by neuro - help appreciated. Likely vertigo, may be related to his previous cerebral condition, cp etc. - continue meds - MRI pending Estimated Date of D/C: 07/22/16
--- NOTE | 2016-07-20 15:31 | MRI ---
PROCEDURE: MRI BRAIN WITH AND WITHOUT CONTRAST HISTORY: Abnormal Cat scan COMPARISON: Comparison is made to the previous CT dated 07/04/2016 TECHNIQUE: Multiplanar, multisequence MR images of the brain were obtained with and without intravenous contrast enhancement. FINDINGS: HEMORRHAGE: None DWI: No evidence of an acute or early subacute infarction. BRAIN PARENCHYMA: No mass,mass effect or edema. The posterior portion of the corpus callosum/ splenium is small in size. Mild atrophy. There is a small periventricular hyperintense FLAIR and T2 signal seen more prominent around the occipital horns of the lateral ventricles. ENHANCEMENT: No abnormal intracranial enhancement. VENTRICLES: Again noted is [id number] dietitian of the atria and occipital horns of the lateral ventricles right more than left suggestive of dgya-yh-ilbileso colpocephaly. CRANIUM: Unremarkable. ORBITS: Grossly unremarkable. PARANASAL SINUSES/MASTOIDS: Clear VASCULAR SYSTEM: Skull base flow voids intact. OTHER FINDINGS: None . 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 No evidence of acute pathology in the brain. No evidence of enhancing mass lesion or abnormal brain enhancement.
[2016-07-21] MEDS: Pantoprazole 40 mg EC Tab PO SCH ×2 (10:05→17:26)
--- NOTE | 2016-07-21 11:27 | PCM.PYCHPN ---
Psychiatric Progress Note - Psychiatric Progress Note Patient seen today, length of contact: 16 min Patient Chief Complaint: "I am better today" Problems Identified/Issues Discussed: The pt is seen twice, chart reviewed, case discussed with staff. Special Distribution Clerk met with the pt again to follow up on rehab referrals. He did not make enough calls but will, he said. He is then observed to be walking just fine w/o the walker, as he forgot to take it when he got up, and he was certainly not dizzy or unsteady. He also said he is planning on driving to [facility] if they take him. He is informed that he will likely be ca'ed in 24 hours b/c he has much improved. MRI did not show any acute change (but his CP related old findings, see report) Support and psychoed given Not suicidal, not homicidal, no AVH/del. Medication Change: No Medical Record Reviewed: Yes Mental Status Examination - Cognitive Function Orientation: Person, Place, Situation, Time Memory: Intact Attention: WNL Concentration: WNL Association: WNL Fund of Knowledge: WNL - Mood Mood: Depressed (much less), Anxious (somewhat) - Affect Affect: Constricted - Speech Speech: Appropriate - Formal Thought Process Formal Thought Process: No Impairment - Suicidal Ideation Suicidal Ideation: No - Homicidal Ideation Homicidal Ideation: No Goal/Treatment Plan - Goal/Treatment Plan Need for Continued Stay: Other (placement (IOP vs. rehab)) Progress Toward Problem(s) and Goals/Treatment Plan: Major Depressive Disorder: - Lexapro 10 mg - Support and psychoeducation - Attend groups and activities - CBT and supportive tx Cocaine use d/o: - [place] - Attend groups and activities Tobacco: - Patch - [place] for abstinence Dizziness: - continue meds - MRI done - Neuro is informed on the test result Estimated Date of D/C: 07/22/16
[2016-07-22] MEDS: Pantoprazole 40 mg EC Tab PO SCH ×2 (09:43→17:58)
--- NOTE | 2016-07-22 12:39 | PCM.PYCHPN ---
Psychiatric Progress Note - Psychiatric Progress Note Patient seen today, length of contact: 17 min Patient Chief Complaint: "I am much better, I don;t need a walker" Problems Identified/Issues Discussed: The pt is seen twice, chart reviewed, case discussed with staff. he is indeed able to walk w/o a walker now Dizziness has subsided and he is happy He is however, worried about rehabs as he is getting "nowhere" but at the same time nurses witnessed that he is making minimal effort to call. Has some depressive sxs and anxiety. Support given, [place] used He is told that he will be d/c'ed on Monday and he thanked the engineering writer. He plans to stay with a friend and rent a room if he can't get into any rehabs Medication Change: No Medical Record Reviewed: Yes Mental Status Examination - Cognitive Function Orientation: Person, Place, Situation, Time Memory: Intact Attention: WNL Concentration: WNL Association: WNL Fund of Knowledge: WNL - Mood Mood: Depressed (much less), Anxious (somewhat) - Affect Affect: Constricted - Speech Speech: Appropriate - Formal Thought Process Formal Thought Process: No Impairment - Suicidal Ideation Suicidal Ideation: No - Homicidal Ideation Homicidal Ideation: No Goal/Treatment Plan - Goal/Treatment Plan Need for Continued Stay: Other (placement (IOP vs. rehab)) Progress Toward Problem(s) and Goals/Treatment Plan: Major Depressive Disorder: - Lexapro 10 mg - Support and psychoeducation - Attend groups and activities - CBT and supportive tx Cocaine use d/o: - [place] - Attend groups and activities Tobacco: - Patch - [place] for abstinence Dizziness: - continue meds - MRI done - Neuro is informed on the test result Estimated Date of D/C: 07/25/16
[2016-07-23] MEDS: Pantoprazole 40 mg EC Tab PO SCH ×2 (09:41→17:37)
--- NOTE | 2016-07-23 16:20 | PCM.PYCHPN ---
Psychiatric Progress Note - Psychiatric Progress Note Patient seen today, length of contact: 15 minutes Patient Chief Complaint: I'm feeling better. Problems Identified/Issues Discussed: Patient seen. Chart reviewed. Case discussed with the staff. Issues related to illness and treatment were discussed with the patient. Reported compliant with treatment with no adverse affects. Reported last dizziness and vertigo . Patient can walk without walker . At The time of evaluation, patient was awake alert oriented 3, had no delusions, no auditory or visual hallucinations, no suicidal ideations or homicidal ideations. Medical Problems: None reported Diagnostic Results: Reviewed DSM 5 Symptoms Update: Improving with treatment Medication Change: No Medical Record Reviewed: Yes Consults ordered or reviewed: Reviewed Mental Status Examination - Cognitive Function Orientation: Person, Place, Situation, Time Memory: Intact Attention: WNL Concentration: WNL Association: WN Fund of Knowledge: [facility] Decription of patient's judgement and insights: Fair - Mood Mood: Depressed (much less than before) - Affect Affect: Other (Appropriate) - Speech Speech: Appropriate - Formal Thought Process Formal Thought Process: No Impairment Psychotic Thoughts and Behaviors: None - Suicidal Ideation Suicidal Ideation: No - Homicidal Ideation Homicidal Ideation: No Goal/Treatment Plan - Goal/Treatment Plan Need for Continued Stay: Remain at risks for inpatient hospitalization, Discharge may exacerbated symptoms, Severe functional impairment Progress Toward Problem(s) and Goals/Treatment Plan: Patient education Supportive therapy Continue treatment as before Estimated Date of D/C: 07/25/16 - Smoking Cessation Smoking Cessation Initiated: Yes
[2016-07-24] MEDS: Pantoprazole 40 mg EC Tab PO SCH ×2 (09:50→17:13)
--- NOTE | 2016-07-24 15:08 | PCM.PYCHPN ---
Psychiatric Progress Note - Psychiatric Progress Note Patient seen today, length of contact: 15 minutes Patient Chief Complaint: I am angry. If they discharge meeting tomorrow I will kill Dr. Persaud. Problems Identified/Issues Discussed: Patient seen. Chart reviewed. Case discussed with the staff. Issues related to illness and treatment were discussed with the patient. Reported compliant with treatment with no adverse affects. This morning during a group, patient reported to the staff member who was running the group that if he gets discharge tomorrow from the hospital, then he would get a burner and will shoot Dr. Persaud, psychiatrist, and a coppersmith apprentice and will bring Dr. Persaud's body to the senior physical therapist home. Patient also stated that he has nothing to lose. Later during evaluation with me, psychiatrist, patient repeated the same words. Patient made a phone call to someone and was repeating the same words. Attempted to calm down the patient, but patient was keep repeating these words towards Dr. Persaud. Patient reported that he does not want to go to [facility] but he needs housing and until he gets housing he does not want to be discharged. Dr. Persaud was informed by this law writer about the threat patient made towards him. Hospital administration was also informed. Asked Dr. Persaud if he wants to take any legal action or call police, he said no and also that he will take care of that tomorrow morning. At The time of evaluation, patient was awake alert oriented 3, had no delusions, no auditory or visual hallucinations, no suicidal ideations. Medical Problems: None reported Diagnostic Results: Reviewed Medication Change: No Medical Record Reviewed: Yes Consults ordered or reviewed: Reviewed Mental Status Examination - Cognitive Function Orientation: Person, Place, Situation, Time Memory: Intact Attention: WNL Concentration: WNL Association: [facility] Fund of Knowledge: [facility] Decription of patient's judgement and insights: Poor - Mood Mood: Depressed, Homicidal Ideation - Affect Affect: Depressed - Speech Speech: Appropriate - Formal Thought Process Formal Thought Process: No Impairment Psychotic Thoughts and Behaviors: None - Suicidal Ideation Suicidal Ideation: No - Homicidal Ideation Homicidal Ideation: Yes Plan: he would get a burner and will shoot Dr. Persaud Goal/Treatment Plan - Goal/Treatment Plan Need for Continued Stay: Remain at risks for inpatient hospitalization, Discharge may exacerbated symptoms, Severe functional impairment Progress Toward Problem(s) and Goals/Treatment Plan: Patient education Supportive therapy Continue treatment as before Estimated Date of D/C: 07/25/16 - Smoking Cessation Smoking Cessation Initiated: Yes
[2016-07-25] MEDS: Pantoprazole 40 mg EC Tab PO SCH ×2 (09:34→17:16)
--- NOTE | 2016-07-25 11:22 | PCM.PYCHPN ---
Psychiatric Progress Note - Psychiatric Progress Note Patient seen today, length of contact: 32 min Patient Chief Complaint: "I was in a bad mood and felt cornered" Problems Identified/Issues Discussed: The pt is seen twice again, chart reviewed and case discussed with the admin and team. Events of the weekend reviewed, when he reportedly threatened the leader writer's life and called few people gave leader writer's name, spelled out etc. He also threatened to shoot a wafer production lead worker, reportedly. Today, he was in a better mood, and he claimed he did not mean any of these things, apologized for any misunderstandings and that he totally denied asking other people or friends to hurt or kill the leader writer and that they in fact told him to work with us as we were helping him. Re wrapper sorter, he claimed he envisioned himself doing a "suicide by wafer production lead worker" meaning attacking them to make them kill him. Currently he also denies this. He is reminded that he had stayed 3x the average stay and that we had done so many things to help him but finding a housing or rehab is not in our control. He understood. He is also warned about the legal ramifications of his threats. He again retracted them. Ways to deal with low mood and anger discussed Lexapro increased Support given Boundaries, limits and rules discussed, incl. safety. As per nursing staff, the pt was helped to call the addiction hotline several times and he was also helped place calls to rehabs. He was observed to be sabotaging self during these calls by highlighting things that are no longer an issue, i.e. dizziness. He understood. Medication Change: Yes (increase lexapro) Medical Record Reviewed: Yes Mental Status Examination - Cognitive Function Orientation: Person, Place, Situation, Time Memory: Intact Attention: WNL Concentration: WNL Association: WNL Fund of Knowledge: WNL - Mood Mood: Depressed, Anxious - Affect Affect: Depressed - Speech Speech: Appropriate - Formal Thought Process Formal Thought Process: No Impairment - Suicidal Ideation Suicidal Ideation: No - Homicidal Ideation Homicidal Ideation: No Goal/Treatment Plan - Goal/Treatment Plan Need for Continued Stay: Remain at risks for inpatient hospitalization, Discharge may exacerbated symptoms, Severe functional impairment Progress Toward Problem(s) and Goals/Treatment Plan: Major Depressive Disorder: - Lexapro 15 mg now - Support and psychoeducation - Attend groups and activities - CBT and supportive tx Cocaine use d/o: - [place] - Attend groups and activities Tobacco: - Patch - [place] for abstinence Dizziness: - resolved (minimal now) Estimated Date of D/C: 07/27/16 If changed, why: more sxs
[2016-07-26 07:34] VITALS: RESP 20
[2016-07-26] MEDS: Pantoprazole 40 mg EC Tab PO SCH ×2 (09:24→17:14)
--- NOTE | 2016-07-26 14:32 | PCM.PYCHPN ---
Psychiatric Progress Note - Psychiatric Progress Note Patient seen today, length of contact: 16 min Patient Chief Complaint: "I am OK' Problems Identified/Issues Discussed: The pt is seen, chart reviewed and case discussed with team He is in better mood and more optimistic, less irate. He now agrees with going to [facility] and attend CRC while he is waiting and calling rehabs. He also will check a "rehab" another pt had mentioned to the pt. Name? Application Defense Manager spoke to the other pt as well and he didn't know the name either but he knows its whereabouts. The pt is warned against following dubious leads. He is making plans on getting his money, car, etc. and is OK with meds, is "not dizzy." Support given, sxs-management discussed. [place] used Medication Change: Yes (increase lexapro) Medical Record Reviewed: Yes Mental Status Examination - Cognitive Function Orientation: Person, Place, Situation, Time Memory: Intact Attention: WNL Concentration: WNL Association: WNL Fund of Knowledge: WNL - Mood Mood: Depressed, Anxious - Affect Affect: Depressed - Speech Speech: Appropriate - Formal Thought Process Formal Thought Process: No Impairment - Suicidal Ideation Suicidal Ideation: No - Homicidal Ideation Homicidal Ideation: No Goal/Treatment Plan - Goal/Treatment Plan Need for Continued Stay: Remain at risks for inpatient hospitalization, Discharge may exacerbated symptoms, Severe functional impairment Progress Toward Problem(s) and Goals/Treatment Plan: Major Depressive Disorder: - Lexapro 20 mg - Support and psychoeducation - Attend groups and activities - CBT and supportive tx Cocaine use d/o: - [place] - Attend groups and activities Tobacco: - Patch - [place] for abstinence Dizziness: - resolved (minimal now) Estimated Date of D/C: 07/27/16
[2016-07-27 08:03] VITALS: BP 123/81; PULSE 64; TEMP 98
--- NOTE | 2016-07-27 08:58 | PCM.PYCHDC ---
Mental Status Examination - Mental Status Examination Orientation: Person, Place, Situation, Time Memory: Intact Mood: Anxious Affect: Constricted Speech: Slurred Attention: WNL Concentration: Poor Association: WNL Fund of Knowledge: WNL Formal Thought Process: No Impairment Suicidal Ideation: No Current Homicidal Ideation?: No Discharge Summary - Discharge Note Reason for Hospitalization: Feeling suicidal, using cocaine. Laboratory Data: MRI of the brain showed old lesions (around corpus callosum. He has CP) Consultations:: List each consultation separately and include: 1. Reason for request. 2. Findings. 3. Follow-up Consultations: Medicine and neurology consulted. Help appreciated. Summary of Hospital Course include:: 1. Description of specific treatment plan utilized for patients during their course of treatmen. 2. Summarize the time- course for resolution of acute symptoms and/or regressed behaviors. 3. Describe issues identified and worked on during hospitalization. 4. Describe medication utilized. 5. Describe medical problems identified and treated. 6. Reassessment of suicide risk Summary of Hospital Course: The pt is seen, chart reviewed, case discussed again. On admission: He is a 41 yo WM, single, no child, disabled due to CP and pain syndrome (disc hernias) and is homeless "practically" b/c he was living with [facility] drug dealer and his GF but cannot return there. He says he has been depressed for a long time and it has gotten worse over months as he is losing his father (brain tumor), "kicked out" from his pain clinic due to his cocaine use, has poor support, no real place to stay. He denies psychotic or manic sxs but reports many depressive sxs. He felt suicidal and thought about OD'ing. He also uses cocaine 1-2 gm/d x 20 years, i.n. or po. Smokes 1.5 ppd cigarettes. Abdon drugs and alcohol but he was on painkillers for a while, yet "not abused." No detox or rehab Past psych: No prev. admissions but OD'ed intentionally in the past. Family psych hx: Fa was an alcoholic Medical hx: CP, disch hernia, s/p gastric bypass surgery but he says his health got worse afterwards. Hospital course: The pt was admitted and started on treatment with psychotherapy, support, psychoeducation and medications. [place] and CBT used for his substance use. The pt attended groups and activities, as well as milieu therapy. All the risks and benefits of medications are discussed and the patient understood and agreed. After care discussed with the patient. [facility] but he couldn't get OK from anywhere. He also contributed in his rejection by highlighting his "dizziness" and having CP, using a walker then. The pt fell once during the first few days of his stay. He was cleared by medicine and then neuro (he had some dizziness then but resolved, especially after meds are adjusted) He tried to use it as a leverage against the staff, i.e. threatened to rossy, was constantly blaming and even more recently he threatened the life of the hand sign writer. He then recanted that and apologized. He was mostly in bed due to his cachexia but with dietitian consult and better nutrition and meds, he improved and was able to ambulate fully and regained his strength. PT also saw him. 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 He told the hand sign writer that he would take lexapro 1/2 tablet (of the 20 mg) b/c he doesn't want to have side-effects. Follow after care plan as discussed. He will go to [facility] until he gets into a rehab (numbers given again) He will stay at [facility] long term (unless he says he can stay with his family) Use relapse prevention skills Return to ER or call 911 if suicidal, homicidal or symptoms relapse. Stay away from stress, alcohol and drugs. See PCP regularly Correction: pt was prescribed 20 mg, not 10 mg Lexapro, and flexeril was NOT prescribed. It was in the list and could not be taken out. 31 min Prescriptions/Medication Reconciliation: Aspirin [Ecotrin] 81 mg PO DAILY #30 Cyclobenzaprine [Flexeril] 5 mg PO TID #90 tab Ergocalciferol [Drisdol 50,000 Intl Units Cap] 1 cap PO Q7D #4 cap Escitalopram [Lexapro] 10 mg PO DAILY #30 tab Escitalopram [Lexapro] 20 mg PO DAILY #30 tab hydrOXYzine HCl [Atarax] 25 mg PO BID PRN #60 tab PRN Reason: Anxiety Meclizine [Meclizine*] 25 mg PO DAILY #30 tab Pantoprazole [Protonix EC Tab] 40 mg PO BID #60 ect traZODone [Desyrel] 50 mg PO HS #30 tab
[2016-07-27] MEDS: Pantoprazole 40 mg EC Tab PO SCH (09:27)
[2016-07-27] MEDS: Ergocalciferol 50,000 Intl Units Cap PO SCH (11:07)
== END 2016-07-27 14:45 | disposition home or self-care (01) | DRG 885 ==
LOC: C.ER 22:59 → C.5E 23:22 → EEVIPCON 23:22 → C.5E 07-19 20:38
PROVIDERS: ADMIT Psychiatry & Neurology Psychiatry; ATTEND Psychiatry & Neurology Psychiatry
PROC: HZ42ZZZ Group Counseling for Substance Abuse Treatment, Cognitive-Behavioral (ICD-10-PCS; principal; 2016-07-02)
PROC: HZ32ZZZ Individual Counseling for Substance Abuse Treatment, Cognitive-Behavioral (ICD-10-PCS; 2016-07-02)
PROC: HZ56ZZZ Individual Psychotherapy for Substance Abuse Treatment, Psychoeducation (ICD-10-PCS; 2016-07-02)
PROC: HZ59ZZZ Individual Psychotherapy for Substance Abuse Treatment, Supportive (ICD-10-PCS; 2016-07-02)
DX: F33.3 Major depressive disorder, recurrent, severe with psychotic symptoms (principal); R45.851 Suicidal ideations; I10 Essential (primary) hypertension; N39.0 Urinary tract infection, site not specified; W18.39XA Other fall on same level, initial encounter; G80.9 Cerebral palsy, unspecified; F17.210 Nicotine dependence, cigarettes, uncomplicated; Z98.84 Bariatric surgery status; F41.9 Anxiety disorder, unspecified; F14.10 Cocaine abuse, uncomplicated; R63.4 Abnormal weight loss; M62.838 Other muscle spasm; R42 Dizziness and giddiness; R63.0 Anorexia; M25.561 Pain in right knee; R04.0 Epistaxis; Z59.0 Homelessness; F60.3 Borderline personality disorder

== ENCOUNTER 2016-08-19 18:00 | Inpatient (IN) | payer MEDICARE, OTHER ==
[2016-08-19 18:15] VITALS: BMI 24.2
[2016-08-19 18:42] LABS: BASO # 0.1 K/uL (0.0-0.2); BASO % 0.9 % (0.0-2.0); EOS # 0.2 K/uL (0.0-0.7); EOS % 3.1 % (0.0-4.0); HEMOGLOBIN 9.9 g/dL (12.0-18.0); LYMPH % 25.5 % (20.0-40.0); MEAN CELL VOLUME 78.3 fL (80.0-94.0); MEAN CORPUSCULAR HEMOGLOBIN 24.8 pg (27.0-31.0); MEAN CORPUSCULAR HGB CONC 31.7 g/dL (33.0-37.0); MEAN PLATELET VOLUME 7.8 fL (7.2-11.7); MONO # 0.7 K/uL (0.0-0.8); MONO % 8.8 % (0.0-10.0); NEUT # 4.8 K/uL (1.8-7.0); NEUT % 61.7 % (50.0-75.0); NRBC % 0.1 % (0.0-2.0); RED CELL DISTRIBUTION WIDTH 17.3 % (11.5-14.5); WHITE BLOOD COUNT 7.8 K/uL (4.8-10.8)
[2016-08-19 18:47] LABS: SQUAMOUS EPITHIAL < 1 /hpf (0-5); URINE BACTERIA RARE (<OCC); URINE BILIRUBIN NEGATIVE (NEGATIVE); URINE BLOOD NEGATIVE (NEGATIVE); URINE CALCIUM OXALATE CRYSTALS RARE /hpf (<OCC); URINE CLARITY Hazy (Clear); URINE COLOR Yellow (YELLOW); URINE GLUCOSE (UA) NORMAL (Normal); URINE LEUKOCYTE ESTERASE 1+ Leu/uL (Negative); URINE NITRATE NEGATIVE (NEGATIVE); URINE PROTEIN NEGATIVE (NEGATIVE); URINE UROBILINOGEN NORMAL mg/dL (0.2-1.0)
[2016-08-19 18:50] LABS: ALBUMIN 4.3 g/dL (3.5-5.0)
[2016-08-19 18:53] LABS: ALB/GLOB RATIO 1.3 (1.0-2.1); ALT/SGPT 12 U/L (21-72); AST/SGOT 20 U/L (17-59); BLOOD UREA NITROGEN 12 mg/dL (9-20); GFR AFRICAN-AMERICAN > 60; GFR NON-AFRICAN AMERICAN > 60
[2016-08-19 18:54] LABS: CALCIUM 9.5 mg/dl (8.6-10.4)
[2016-08-19 18:56] LABS: BARBITURATES, UR NEGATIVE (NEGATIVE); BENZODIAZEPINES, UR NEGATIVE (NEGATIVE)
[2016-08-19 18:59] LABS: OPIATES, UR NEGATIVE (NEGATIVE)
[2016-08-19 19:00] LABS: PHENCYCLIDINE, UR NEGATIVE (NEGATIVE)
--- NOTE | 2016-08-19 19:39 | C.PDOC ---
History Of Present Illness 41 year old male was brought to the ED by EMS for evaluation of suicidal thoughts. Patient states he is having thought of "hurting himself" and wants to overdose on his medications. Patient denies any homicidal ideations or physical complaints at this time. Time Seen by Provider: 08/19/16 18:04 Chief Complaint (Nursing): Psychiatric Evaluation History Per: Patient History/Exam Limitations: no limitations Onset/Duration Of Symptoms: Hrs Current Symptoms Are (Timing): Still Present Suicide/Self Injury Attempted (Context): None Associated Symptoms: Suicidal Thoughts, Suicidal Plan Involuntary Hold By: None Recent travel outside of the [place]: No Additional History Per: EMS Past Medical History Reviewed: Historical Data, Nursing Documentation, Vital Signs Vital Signs: Last Vital Signs Temp 97.5 F L 08/23/16 07:42 Pulse 78 08/23/16 07:42 Resp 19 08/23/16 07:42 BP 123/82 08/23/16 07:42 Pulse Ox 96 08/19/16 20:12 - Medical History PMH: Anxiety, Back Problems, Depression - [facility] Procedures 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 FOR SUBSTANCE ABUSE, COGNITIVE BEHAVIORAL (07/02/16) GROUP PSYCHOTHERAPY (08/10/16) INDIV PHOTOGRAPHIC DEVELOPER AND PRINTER FOR SUBSTANCE ABUSE, COGNITIVE BEHAVIORAL (07/02/16) INDIV PSYCHOTHERAPY FOR SUBSTANCE ABUSE TREATMENT, SUPPORT (07/02/16) INDIV PSYCHOTHERAPY FOR SUBSTANCE ABUSE, PSYCHOEDUCATION (07/02/16) INDIVIDUAL PSYCHOTHERAPY, COGNITIVE-BEHAVIORAL (08/10/16) Family History: States: No Known Family Hx - Social History Hx Alcohol Use: No Hx Substance Use: Yes - Immunization History Hx Tetanus Toxoid Vaccination: No Hx Influenza Vaccination: Yes Hx Pneumococcal Vaccination: Yes Review Of Systems Except As Marked, All Systems Reviewed And Found Negative. Constitutional: Negative for: Fever, Chills Cardiovascular: Negative for: Chest Pain, Palpitations Respiratory: Negative for: Cough, Shortness of Breath Gastrointestinal: Negative for: Nausea, Vomiting, Abdominal Pain, Diarrhea Psych: Positive for: Suicidal ideation Physical Exam - Physical Exam Appears: Non-toxic, No Acute Distress, Other (appears anxious ) Skin: Warm, Dry Head: Normacephalic Eye(s): bilateral: Normal Inspection Oral Mucosa: Moist Neck: Supple Cardiovascular: Rhythm Regular Respiratory: Normal Breath Sounds, No Rales, No Rhonchi, No Wheezing Gastrointestinal/Abdominal: Normal Exam, Bowel Sounds, Soft, No Tenderness Extremity: Normal ROM, No Tenderness Neurological/Psych: Oriented x3 ED Course And Treatment - Laboratory Results Result Diagrams: 08/19/16 18:38 08/19/16 18:38 O2 Sat by Pulse Oximetry: 96 (room air ) Pulse Ox Interpretation: Normal Progress Note: Blood work, UA, UDS ordered and reviewed. 20:00- Patient medically cleared. Accepted by Dr. Jackson for psychiatric admission. Disposition - Disposition Disposition: HOSPITALIZED Disposition Time: 20:01 Condition: STABLE - Clinical Impression Clinical Impression: Depression, Suicidal ideation - Scribe Statement The provider has reviewed the documentation as recorded by the Scribe Liudmila German All medical record entries made by the Scribe were at my direction and personally dictated by me. I have reviewed the chart and agree that the record accurately reflects my personal performance of the history, physical exam, medical decision making, and the department course for this patient. I have also personally directed, reviewed, and agree with the discharge instructions and disposition. Decision To Admit - Pt Status Changed To: Hospital Disposition Of: Inpatient - Admit Certification Admit to Inpatient:: After my assessment, the patient will require hospitalization for at least two midnights. This is because of the severity of symptoms shown, intensity of services needed, and/or the medical risk in this patient being treated as an outpatient. - InPatient: Physician Admission Certification: I certify that this patient requires 2 or more midnights of care for the following reason:: see notes - . Bed Request Type: Psychiatry Admitting Physician: Naomie Jackson Patient Diagnosis: Depression, Suicidal ideation
[2016-08-19 20:12] VITALS: O2SAT 96
[2016-08-21 07:44] VITALS: RESP 19
--- NOTE | 2016-08-21 10:23 | PCM.PSYCH ---
Initial Psychiatric Evaluation - Initial Psychiatric Evaluation Type of Admission: Voluntary Legal Status: Capacity Chief Complaint (in patient's own words): I was feeling depressed and suicidal History of Present Illness and Precipitating Events: Patient is a is a 41 yo male, who is currently unemployed and homeless , disabled due to CP and pain syndrome (disc hernias), came to the ED with depressed mood and suicidal ideation. School Supervisor is familiar with this patient. Patient was just discharged from [facility] almost 2 weeks ago. As per the patient, soon after discharge he stopped taking his medications and was admitted at the [facility]. Patient states that he was just discharged from the hospital, but he was not ready and still feeling depressed and suicidal. Yesterday he came to the [facility] to get help. Patient reports depressed mood, feelings of hopelessness and helplessness poor sleep and poor appetite. He denies any auditory or visual hallucinations and persecutory delusions. He reports history of off-and-on cocaine abuse but denies any recent substance abuse. Past psych: No prev. admissions but OD'ed intentionally in the past. Family psych hx: Father was an alcoholic Medical hx: CP, disc hernia, s/p gastric bypass surgery Current Medications: Active Medications Generic Name Dose Route Start Last Admin Trade Name Freq PRN Reason Stop Dose Admin Gabapentin 100 mg 08/20/16 10:00 08/21/16 09:44 Neurontin PO 100 mg TID SHERRY Administration Hydroxyzine HCl 25 mg 08/19/16 22:37 08/19/16 22:40 Atarax PO 25 mg Q6H PRN Administration Anxiety Loperamide HCl 2 mg 08/19/16 23:41 Imodium PO Q8 PRN Diarrhea Ondansetron HCl 4 mg 08/19/16 23:41 Zofran Tab PO Q8H PRN Nausea/Vomiting Quetiapine Fumarate 50 mg 08/20/16 22:00 Seroquel PO HS SHERRY Sertraline HCl 25 mg 08/20/16 10:00 08/21/16 09:44 Zoloft PO 25 mg DAILY SHERRY Administration Trazodone HCl 100 mg 08/19/16 22:00 08/19/16 22:38 Desyrel PO 100 mg HS SHERRY Administration Past Psychiatric History - Past Psychiatric History Previous Treatment History: Inpatient Pertinent Medical Hx (Current Medical&Sleep Prob, Allergies): Allergies Allergy/AdvReac Type Severity Reaction Status Date / Time phenobarbital Allergy Verified 08/19/16 18:12 No Known Home Med 08/19/16 Review of Systems - Review of Systems All systems: reviewed and no additional remarkable complaints except - Psychiatric Psychiatric: Anxiety, Irritability, Suicidal Ideation Mental Status Examination - Personal Presentation Personal Presentation: Looks stated age - Affect Affect: Constricted, Depressed - Motor Activity Motor Activity: Calm - Reliability in Providing Information Reliability in Providing Information: Good - Speech Speech: Organized - Mood Mood: Depressed, Anxious - Formal Thought Process Formal Thought Process: No Impairment - Obsessions/Compulsions Obsessions: No Compulsions: No - Cognitive Functions Orientation: Person, Place, Situation, Time Sensorium: Alert Attention/Concentration: Attentive Abstract Thinking: [place] Estimate of Intelligence: Below average Judgement: Imparied, as evidence by: Poor judgement, Imparied, as evidence by: Lack of insight into illness - Risk Risk: Suicidal, Diminished functioning - Strength & Assets Inventory Strength & Assets Inventory: Life experience DSM 5 DX - DSM 5 DSM 5 Diagnosis: Major depression, recurrent, severe, without psychotic features Cocaine use disorder severe Tobacco use disorder severe Personality disorder unspecified - Recommended/Plan of Treatment Treatment Recommendations and Plan of Treatment: Major depression, recurrent, severe, without psychotic features CBT Psychoeducation Supportive therapy, group therapy, individual therapy Seroquel 50 mg by mouth daily at bedtime Zoloft 25 mg daily Neurontin 100 mg by mouth 3 times a day Trazodone 50 mg by mouth daily at bedtime Cocaine use disorder severe CBT Psychoeducation Supportive therapy, individual therapy Use [place] for abstinence Tobacco use disorder severe CBT Psychoeducation Supportive therapy, individual therapy Use [place] for abstinence Personality disorder unspecified CBT Psychoeducation - Smoking Cessation Smoking Cessation Initiated: No
--- NOTE | 2016-08-21 12:47 | PCM.PYCHPN ---
Psychiatric Progress Note - Psychiatric Progress Note Patient seen today, length of contact: 16 min Patient Chief Complaint: I am feeling little better Problems Identified/Issues Discussed: Patient seen and evaluated, chart reviewed and discussed with the nurse. As per the staff, patient still appears isolated, depressed and withdrawn. Patient still reports depressed mood and reports at times feelings of hopelessness or helplessness. However he denies any suicidal ideation or homicidal ideation. He denies any auditory or visual hallucinations or any psychotic symptoms. He is compliant with her medications and denies any side effects. Supportive therapy and psychoeducation were given. Medication Change: No Medical Record Reviewed: Yes Mental Status Examination - Cognitive Function Orientation: Person, Place, Situation, Time Memory: Intact Attention: WNL Concentration: Poor Association: WNL Fund of Knowledge: Poor - Mood Mood: Depressed, Anxious - Affect Affect: Constricted - Speech Speech: Soft - Formal Thought Process Formal Thought Process: No Impairment - Suicidal Ideation Suicidal Ideation: No - Homicidal Ideation Homicidal Ideation: No Goal/Treatment Plan - Goal/Treatment Plan Need for Continued Stay: Discharge may exacerbated symptoms, Severe functional impairment Progress Toward Problem(s) and Goals/Treatment Plan: Major depression, recurrent, severe, without psychotic features CBT Psychoeducation Supportive therapy, group therapy, individual therapy Seroquel 50 mg by mouth daily at bedtime Zoloft 25 mg daily Neurontin 100 mg by mouth 3 times a day Trazodone 50 mg by mouth daily at bedtime Cocaine use disorder severe CBT Psychoeducation Supportive therapy, individual therapy Use [place] for abstinence Tobacco use disorder severe CBT Psychoeducation Supportive therapy, individual therapy Use [place] for abstinence Personality disorder unspecified CBT Psychoeducation - Smoking Cessation Smoking Cessation Initiated: No
[2016-08-22 07:54] VITALS: TEMP 97.5
--- NOTE | 2016-08-22 16:50 | PCM.PYCHPN ---
Psychiatric Progress Note - Psychiatric Progress Note Patient seen today, length of contact: 16 min Patient Chief Complaint: I am feeling little better Problems Identified/Issues Discussed: Patient seen and evaluated, chart reviewed and discussed with the nurse. The patient reports improvement in his mood and reports overall improvement in his depressive, but he remained isolated and continued to pace back and forth in the hallways. The pt is compliant with medications and reports no side-effects. Symptoms are improving but needs more time to stabilize. After care discussed, support and psychoeducation given. Medication Change: No Medical Record Reviewed: Yes Mental Status Examination - Cognitive Function Orientation: Person, Place, Situation, Time Memory: Intact Attention: WNL Concentration: Poor Association: WNL Fund of Knowledge: Poor - Mood Mood: Depressed, Anxious - Affect Affect: Constricted - Speech Speech: Soft - Formal Thought Process Formal Thought Process: No Impairment - Suicidal Ideation Suicidal Ideation: No - Homicidal Ideation Homicidal Ideation: No Goal/Treatment Plan - Goal/Treatment Plan Need for Continued Stay: Discharge may exacerbated symptoms, Severe functional impairment Progress Toward Problem(s) and Goals/Treatment Plan: Major depression, recurrent, severe, without psychotic features CBT Psychoeducation Supportive therapy, group therapy, individual therapy Seroquel 50 mg by mouth daily at bedtime Zoloft 25 mg daily Neurontin 100 mg by mouth 3 times a day Trazodone 50 mg by mouth daily at bedtime Cocaine use disorder severe CBT Psychoeducation Supportive therapy, individual therapy Use [place] for abstinence Tobacco use disorder severe CBT Psychoeducation Supportive therapy, individual therapy Use [place] for abstinence Personality disorder unspecified CBT Psychoeducation
[2016-08-23 07:43] VITALS: BP 123/82; PULSE 78
--- NOTE | 2016-08-23 12:41 | PCM.PYCHPN ---
Psychiatric Progress Note - Psychiatric Progress Note Patient seen today, length of contact: 16 min Patient Chief Complaint: I am feeling little better Problems Identified/Issues Discussed: Patient seen and evaluated, chart reviewed and discussed with the nurse. The patient reports improvement in his mood and reports overall improvement in his depressive, but he remained isolated and continued to pace back and forth in the hallways. The pt is compliant with medications and reports no side-effects. Symptoms are improving but needs more time to stabilize. After care discussed, support and psychoeducation given. Medication Change: No Medical Record Reviewed: Yes Mental Status Examination - Cognitive Function Orientation: Person, Place, Situation, Time Memory: Intact Attention: WNL Concentration: Poor Association: WNL Fund of Knowledge: Poor - Mood Mood: Depressed, Anxious - Affect Affect: Constricted - Speech Speech: Soft - Formal Thought Process Formal Thought Process: No Impairment - Suicidal Ideation Suicidal Ideation: No - Homicidal Ideation Homicidal Ideation: No Goal/Treatment Plan - Goal/Treatment Plan Need for Continued Stay: Discharge may exacerbated symptoms, Severe functional impairment Progress Toward Problem(s) and Goals/Treatment Plan: Major depression, recurrent, severe, without psychotic features CBT Psychoeducation Supportive therapy, group therapy, individual therapy Seroquel 50 mg by mouth daily at bedtime Zoloft 25 mg daily Neurontin 100 mg by mouth 3 times a day Trazodone 50 mg by mouth daily at bedtime Cocaine use disorder severe CBT Psychoeducation Supportive therapy, individual therapy Use [place] for abstinence Tobacco use disorder severe CBT Psychoeducation Supportive therapy, individual therapy Use [place] for abstinence Personality disorder unspecified CBT Psychoeducation
--- NOTE | 2016-08-24 14:27 | PCM.PYCHDC ---
Mental Status Examination - Mental Status Examination Orientation: Person, Place, Situation, Time Memory: Intact Mood: Neutral Affect: Constricted Speech: Soft Attention: WNL Concentration: WNL Association: WNL Fund of Knowledge: WNL Formal Thought Process: No Impairment Description of patient's judgement and insight: partially impaired Psychotic Thoughts and Behaviors: Denies any AVH Suicidal Ideation: No Current Homicidal Ideation?: No Discharge Summary - Discharge Note Reason for Hospitalization: Patient is a is a 41 yo male, who is currently unemployed and homeless , disabled due to CP and pain syndrome (disc hernias), came to the ED with depressed mood and suicidal ideation. 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 Patient was just discharged from [facility] almost 2 weeks ago. As per the patient, soon after discharge he stopped taking his medications and was admitted at the [facility]. Patient states that he was just discharged from the hospital, but he was not ready and still feeling depressed and suicidal. Yesterday he came to the [facility] to get help. Patient reports depressed mood, feelings of hopelessness and helplessness poor sleep and poor appetite. He denies any auditory or visual hallucinations and persecutory delusions. He reports history of off-and-on cocaine abuse but denies any recent substance abuse. Consultations:: List each consultation separately and include: 1. Reason for request. 2. Findings. 3. Follow-up Summary of Hospital Course include:: 1. Description of specific treatment plan utilized for patients during their course of treatmen. 2. Summarize the time- course for resolution of acute symptoms and/or regressed behaviors. 3. Describe issues identified and worked on during hospitalization. 4. Describe medication utilized. 5. Describe medical problems identified and treated. 6. Reassessment of suicide risk Summary of Hospital Course: During the course of his stay, patient (pt) started progressively improving, and he remained very irritable and agitated. He started fighting with the staff and started yelling and cursing. Today he started a verbal altercation with the staff, when the security was called and he was administratively discharged. He became very angry, irritable and agitated and started threatening the staff. Security escorted patient out of the unit. However he denied any suicidal ideation or homicidal ideation and denied any auditory or visual hallucinations. - Final Diagnosis (DSM 5) Condition upon Discharge: STABLE DSM 5: Major depression, recurrent, severe, without psychotic features Cocaine use disorder severe Personality disorder unspecified Disposition: AGAINST MEDICAL ADVICE Follow-up Treatment Plan: Education: Pt was educated and counseled about the risks and benefits of taking and not taking medications. Pt was educated and counseled about the risks of drinking and abusing drugs. Pt was educated and counseled to go to the ER or call 911 if pt develop suicidal ideation or homicidal ideation, worsening of symptoms or severe side effects of the meds. - Smoking Cessation Smoking Cessation Medication prescribed: No - Antipsychotic Medications Pt discharged on 2 or more routine antipsychotic medications: No
== END 2016-08-23 13:35 | disposition left against medical advice (07) | DRG 885 ==
LOC: C.ER 18:00 → C.5E 20:01
PROVIDERS: ADMIT Psychiatry & Neurology Psychiatry; ATTEND Psychiatry & Neurology Psychiatry
PROC: GZHZZZZ Group Psychotherapy (ICD-10-PCS; principal; 2016-08-19)
PROC: GZ58ZZZ Individual Psychotherapy, Cognitive-Behavioral (ICD-10-PCS; 2016-08-19)
PROC: GZ56ZZZ Individual Psychotherapy, Supportive (ICD-10-PCS; 2016-08-19)
PROC: HZ56ZZZ Individual Psychotherapy for Substance Abuse Treatment, Psychoeducation (ICD-10-PCS; 2016-08-19)
DX: F33.2 Major depressive disorder, recurrent severe without psychotic features (principal); R45.851 Suicidal ideations; F41.9 Anxiety disorder, unspecified; F14.10 Cocaine abuse, uncomplicated; F17.210 Nicotine dependence, cigarettes, uncomplicated; F60.9 Personality disorder, unspecified; Z59.0 Homelessness; Z98.84 Bariatric surgery status